=== PATIENT | female | born 1955 | race American Indian/Alaskan Native ===

== ENCOUNTER 2019-10-13 15:11 | Emergency (ER) | payer MEDICARE ==
[2019-10-13] MEDS ORDERED: ALBUTEROL 2.5 MG/3 ML NEBU IH ONE (16:01)
[2019-10-13] MEDS ORDERED: IPRATROPIUM 0.02% NEBU 2.5 ML IH ONE (16:01)
--- NOTE | 2019-10-13 16:41 | Emergency Department Report ---
ED General Adult HPI - General Chief complaint: Dyspnea/Respdistress Stated complaint: RESPIRATORY DISTRESS Time Seen by Provider: 10/13/19 15:42 Source: patient, EMS Mode of arrival: Stretcher Limitations: No Limitations - History of Present Illness Initial comments: The patient presents to the emergency department chief complaint of shortness of breath. Patient has a history of COPD and states that she began to have difficulty breathing today. 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 Patient received Solu-Medrol and IV magnesium in route along with a breathing treatment. Patient states that her breathing is improved but she is still having some mild difficulty breathing. -: Sudden Severity scale (0 -10): 0 Consistency: constant Improves with: none Worsens with: none Associated Symptoms: denies other symptoms Treatments Prior to Arrival: none - Related Data Previous Rx's Medication Instructions Recorded Last Taken Type Albuterol Sulfate [Albuterol 0.63% 0.63 mg IH Q4HR PRN #30 ml 10/13/19 Unknown Rx NEBS] predniSONE [Deltasone] 20 mg PO DAILY #15 tablet 10/13/19 Unknown Rx Allergies Allergy/AdvReac Type Severity Reaction Status Date / Time No Known Allergies Allergy Unverified 10/13/19 15:16 ED Review of Systems ROS: Stated complaint: RESPIRATORY DISTRESS Other details as noted in HPI Comment: All other systems reviewed and negative Constitutional: denies: chills, fever Eyes: denies: eye pain, eye discharge, vision change ENT: denies: ear pain, throat pain Respiratory: shortness of breath. denies: cough, wheezing Cardiovascular: denies: chest pain, palpitations Endocrine: no symptoms reported Gastrointestinal: denies: abdominal pain, nausea, diarrhea Genitourinary: denies: urgency, dysuria, discharge Musculoskeletal: denies: back pain, joint swelling, arthralgia Skin: denies: rash, lesions Neurological: denies: headache, weakness, paresthesias Psychiatric: denies: anxiety, depression Hematological/Lymphatic: denies: easy bleeding, easy bruising ED Past Medical Hx - Past Medical History Hx Hypertension: Yes Hx Liver Disease: (Hep C) Hx Renal Disease: Yes Hx COPD: Yes Additional medical history: Dementia - Social History Smoking Status: Never Smoker Substance Use Type: None - Medications Home Medications: Home Medications Medication Instructions Recorded Confirmed Last Taken Type Albuterol Sulfate [Albuterol 0.63% 0.63 mg IH Q4HR PRN #30 ml 10/13/19 Unknown Rx NEBS] predniSONE [Deltasone] 20 mg PO DAILY #15 tablet 10/13/19 Unknown Rx ED Physical Exam - General Limitations: No Limitations General appearance: alert, in no apparent distress - Head Head exam: Present: atraumatic, normocephalic - Eye Eye exam: Present: normal appearance, PERRL, EOMI - ENT ENT exam: Present: mucous membranes moist - Neck Neck exam: Present: normal inspection - Respiratory Respiratory exam: Present: wheezes (And expiratory wheezing), decreased breath sounds. Absent: respiratory distress - Cardiovascular Cardiovascular Exam: Present: regular rate, normal rhythm. Absent: systolic murmur, diastolic murmur, rubs, gallop - GI/Abdominal GI/Abdominal exam: Present: soft, normal bowel sounds. Absent: distended, tenderness - Extremities Exam Extremities exam: Present: normal inspection - Back Exam Back exam: Present: normal inspection - Neurological Exam Neurological exam: Present: alert, oriented X3, CN II-XII intact. Absent: motor sensory deficit - Psychiatric Psychiatric exam: Present: normal affect, normal mood - Skin Skin exam: Present: warm, dry, intact, normal color. Absent: rash ED Course Vital Signs 10/13/19 10/13/19 15:17 15:52 Temperature 98.5 F Pulse Rate 89 88 Respiratory 23 25 H Rate Blood Pressure 174/104 Blood Pressure 148/93 [Left] O2 Sat by Pulse 100 100 Oximetry ED Medical Decision Making - Lab Data Result diagrams: 10/13/19 16:25 10/13/19 16:25 - Medical Decision Making Patient given a continuous breathing treatment Repeat exam at 6 PM the patient has significant improvement in her respiratory status and is able to complete sentences and states that she wants to go home Critical Care Time: Yes Critical care time in (mins) excluding proc time.: 35 Critical care attestation.: If time is entered above; I have spent that time in minutes in the direct care of this critically ill patient, excluding procedure time. ED Disposition Clinical Impression: COPD with exacerbation Disposition: DC-01 TO HOME OR SELFCARE Is pt being admited?: No Does the pt Need Aspirin: No Condition: Stable Instructions: Chronic Obstructive Pulmonary Disease (ED) Additional Instructions: Return if worse Referrals: PRIMARY CARE, [Primary Care Provider] - 3-5 Days [facility] [Provider Group] - 3-5 Days [facility] [Provider Group] - 3-5 Days DEBO MARIN MD [Staff Physician] - 3-5 Days Time of Disposition: 18:13
--- NOTE | 2019-10-13 16:50 | XRay Report ---
CHEST 1 VIEW INDICATION: Dyspnea. COMPARISON: None. FINDINGS: Support devices: None. Heart: Within normal limits. Lungs/Pleura: No acute air space or interstitial disease. Additional findings: None. IMPRESSION: No acute abnormality. Signer Name: Eddy Ferris MD Signed: 10/13/2019 4:46 PM Workstation Name: [id number]
[2019-10-13 17:17] LABS: Basophils % (Auto) 0.3 % (0.0-1.8); Eosinophils # (Auto) 0.5 K/mm3 (0.0-0.4); Eosinophils % (Auto) 8.8 % (0.0-4.3); Hematocrit 35.7 % (30.3-42.9); Lymphocytes # (Auto) 1.1 K/mm3 (1.2-5.4); Lymphocytes % (Auto) 20.2 % (13.4-35.0); Mean Corpuscular HGB Conc 34 % (30-34); Mean Corpuscular Volume 100 fl (79-97); Monocytes # (Auto) 0.2 K/mm3 (0.0-0.8); Monocytes % (Auto) 3.6 % (0.0-7.3); Platelet Count 184 K/mm3 (140-440); Red Blood Count 3.56 M/mm3 (3.65-5.03); Red Cell Distribution Width 12.6 % (13.2-15.2)
[2019-10-13 17:26] LABS: Albumin 4.1 g/dL (3.9-5); Calcium 10.5 mg/dL (8.4-10.2)
[2019-10-13 18:36] VITALS: BP 133/84
== END 2019-10-13 18:36 | disposition home or self-care (01) ==
LOC: ED 15:11
DX: J44.1 Chronic obstructive pulmonary disease with (acute) exacerbation (principal); I10 Essential (primary) hypertension; F03.90 Unspecified dementia, unspecified severity, without behavioral disturbance, psychotic disturbance, mood disturbance, and anxiety; B19.20 Unspecified viral hepatitis C without hepatic coma; Z87.448 Personal history of other diseases of urinary system; Z79.899 Other long term (current) drug therapy
CPT/HCPCS: 36415; 71045; 80053; 83880; 85025; 93005; 93010; 94640; 99291

== ENCOUNTER 2021-03-21 13:04 | Inpatient (IN) | payer MEDICARE ==
--- NOTE | 2021-03-21 14:25 | Emergency Department Report ---
HPI - General Chief Complaint: Dyspnea/Respdistress Time Seen by Provider: 03/21/21 13:29 - HPI HPI: This is a 66-year-old -[place] female presents to the emergency department via EMS from her personal group home with complaint of a 2-day history of shortness of breath and a mixed dry and productive cough. The patient has a history of COPD and is oxygen dependent at home on 3 L via nasal cannula. When EMS arrived the patient was not on oxygen and had a room air pulse ox of 80%. Patient also has a history of hypertension and asthma. She denies tobacco or illicit drug use. The patient received a nonrebreather, albuterol treatment, and a dose of Solu-Medrol. The patient says that she received 2 vaccination doses for Covid. She denies any chest pain, lower extremity swelling, nausea, vomiting or diaphoresis. ED Past Medical Hx - Past Medical History Previous Medical History?: Yes Hx Hypertension: Yes Hx Liver Disease: (Hep C) Hx Renal Disease: Yes Hx COPD: Yes Additional medical history: Dementia - Social History Smoking Status: Never Smoker Substance Use Type: None - Medications Home Medications: Home Medications Medication Instructions Recorded Confirmed Last Taken Type Albuterol Sulfate [Albuterol 0.63% 0.63 mg IH Q4HR PRN #30 ml 10/13/19 03/23/21 03/20/21 Rx NEBS] predniSONE [Deltasone] 20 mg PO DAILY #15 tablet 10/13/19 03/23/21 03/20/21 Rx Arformoterol Nebu [Brovana Nebu] 15 mcg IH BID 03/22/21 03/23/21 03/20/21 22:00 History Aspirin [Aspirin BABY CHEW TAB] 81 mg PO QDAY 03/22/21 03/23/21 03/20/21 08:00 History Budesonide [Pulmicort] 0.5 mg IH Q6H 03/22/21 03/23/21 03/20/21 15:00 History Cholecalciferol Vit D3 [Vitamin D3 1,000 unit PO TID 03/22/21 03/23/21 03/21/21 08:00 History 1,000 UNIT TAB] Mirabegron [Myrbetriq] 25 mg PO QDAY 03/22/21 03/23/21 03/20/21 08:00 History Mirtazapine [Remeron 45mg TAB] 45 mg PO QHS 03/22/21 03/23/21 03/20/21 22:00 History Spironolactone [Aldactone] 25 mg PO QDAY 03/22/21 03/22/21 03/20/21 08:00 History lisinopriL [Zestril] 5 mg PO QDAY 03/22/21 03/22/21 03/20/21 08:00 History ED Review of Systems ROS: Stated complaint: JARED Other details as noted in HPI Comment: All other systems reviewed and negative Constitutional: denies: chills, fever Eyes: denies: eye pain, vision change ENT: denies: ear pain, throat pain Respiratory: cough, shortness of breath, wheezing Cardiovascular: denies: chest pain, palpitations Gastrointestinal: denies: abdominal pain, vomiting Genitourinary: denies: dysuria, discharge Musculoskeletal: denies: back pain, arthralgia Skin: denies: rash Neurological: denies: headache, weakness Physical Exam - Physical Exam Vital Signs: Vital Signs 03/21/21 13:26 Temperature 99.7 F H Pulse Rate 114 H Respiratory 24 Rate Blood Pressure 158/100 [Right] O2 Sat by Pulse 100 Oximetry Physical Exam: GENERAL: The patient is well-developed well-nourished. HENT: Normocephalic. Atraumatic. Patient has moist mucous membranes. EYES: Extraocular motions are intact. NECK: Supple. Trachea is midline. CHEST/LUNGS: Moderate wheezing throughout the chest. There is tachypnea and some accessory muscle use. There is conversational dyspnea. HEART/CARDIOVASCULAR: Regular. There is no tachycardia. There is no murmur. ABDOMEN: Abdomen is soft, nontender. Patient has normal bowel sounds. There is no abdominal distention. SKIN: Skin is warm and dry. NEURO: The patient is awake, alert, and cooperative. The patient has no focal neurologic deficits. Normal speech. MUSCULOSKELETAL: There is no tenderness or deformity. ED Course Vital Signs 03/21/21 13:26 Temperature 99.7 F H Pulse Rate 114 H Respiratory 24 Rate Blood Pressure 158/100 [Right] O2 Sat by Pulse 100 Oximetry ED Medical Decision Making - Lab Data Result diagrams: 03/22/21 11:01 03/22/21 11:01 Lab Results 03/21/21 03/21/21 03/21/21 Range/Units 14:36 14:36 14:36 WBC 7.5 (4.5-11.0) K/mm3 RBC 3.81 (3.65-5.03) M/mm3 Hgb 12.9 (10.1-14.3) gm/dl Hct 38.0 (30.3-42.9) % MCV 100 H (79-97) fl MCH 34 H (28-32) pg MCHC 34 (30-34) % RDW 12.3 L (13.2-15.2) % Plt Count 166 (140-440) K/mm3 Add Manual Diff Complete Total Counted 100 Seg Neutrophils % Applications Instructor Seg Neuts % (Manual) 93.0 H (40.0-70.0) % Lymphocytes % (Manual) 6.0 L (13.4-35.0) % Monocytes % (Manual) 1.0 (0.0-7.3) % Nucleated RBC % Not Reportable Seg Neutrophils # Man 7.0 (1.8-7.7) K/mm3 Band Neutrophils # 0.0 K/mm3 Lymphocytes # (Manual) 0.5 L (1.2-5.4) K/mm3 Abs React Lymphs (Man) 0.0 K/mm3 Monocytes # (Manual) 0.1 (0.0-0.8) K/mm3 Eosinophils # (Manual) 0.0 (0.0-0.4) K/mm3 Basophils # (Manual) 0.0 (0.0-0.1) K/mm3 Metamyelocytes # 0.0 K/mm3 Myelocytes # 0.0 K/mm3 Promyelocytes # 0.0 K/mm3 Blast Cells # 0.0 K/mm3 WBC Morphology Not Reportable Hypersegmented Neuts Not Reportable Hyposegmented Neuts Not Reportable Hypogranular Neuts Not Reportable Smudge Cells Not Reportable Toxic Granulation Not Reportable Toxic Vacuolation Not Reportable Dohle Bodies Not Reportable Pelger-Huet Anomaly Not Reportable Stephany Rods Not Reportable Platelet Estimate Consistent w auto Clumped Platelets Not Reportable Plt Clumps, EDTA Not Reportable Large Platelets Not Reportable Giant Platelets Not Reportable Platelet Satelliting Not Reportable Plt Morphology Comment Not Reportable RBC Morphology Normal Dimorphic RBCs Not Reportable Polychromasia Not Reportable Hypochromasia Not Reportable Poikilocytosis Not Reportable Anisocytosis Not Reportable Microcytosis Not Reportable Macrocytosis Not Reportable Spherocytes Not Reportable Pappenheimer Bodies Not Reportable Sickle Cells Not Reportable Target Cells Not Reportable Tear Drop Cells Not Reportable Ovalocytes Not Reportable Helmet Cells Not Reportable Cardoza-Nogales Bodies Not Reportable Walton Rings Not Reportable Esther Cells Not Reportable Bite Cells Not Reportable Crenated Cell Not Reportable Elliptocytes Not Reportable Acanthocytes (Spur) Not Reportable Rouleaux Not Reportable Hemoglobin C Crystals Not Reportable Schistocytes Not Reportable Malaria parasites Not Reportable Sean Bodies Not Reportable Hem Pathologist Commnt No D-Dimer 395.59 H (0-234) ng/mlDDU Sodium 143 (137-145) mmol/L Potassium 5.7 H (3.6-5.0) mmol/L Chloride 104.3 (98-107) mmol/L Carbon Dioxide 25 (22-30) mmol/L Anion Gap 19 mmol/L BUN 24 H (7-17) mg/dL Creatinine 1.6 H (0.6-1.2) mg/dL Estimated GFR 39 ml/min BUN/Creatinine Ratio 15 % Glucose 118 H (65-100) mg/dL Calcium 10.2 (8.4-10.2) mg/dL Ferritin (10.0-200.0) ng/mL Total Bilirubin 0.60 (0.1-1.2) mg/dL AST 41 H (5-40) units/L ALT 41 (7-56) units/L Alkaline Phosphatase 93 (35-129) units/L Lactate Dehydrogenase (91-180) units/L Troponin T 0.063 H (0.00-0.029) ng/mL C-Reactive Protein (0.00-1.30) mg/dL NT-Pro-B Natriuret Pep (0-900) pg/mL Total Protein 7.9 (6.3-8.2) g/dL Albumin 4.8 (3.9-5) g/dL Albumin/Globulin Ratio 1.5 % Triglycerides 55 (2-149) mg/dL Cholesterol 230 H (50-199) mg/dL LDL Cholesterol Direct 142 H (50-130) mg/dL HDL Cholesterol 91 H (40-59) mg/dL Cholesterol/HDL Ratio 2.52 % Procalcitonin (<0.15) ng/mL 03/21/21 03/21/21 03/21/21 Range/Units 14:36 14:36 14:36 WBC (4.5-11.0) K/mm3 RBC (3.65-5.03) M/mm3 Hgb (10.1-14.3) gm/dl Hct (30.3-42.9) % MCV (79-97) fl MCH (28-32) pg MCHC (30-34) % RDW (13.2-15.2) % Plt Count (140-440) K/mm3 Add Manual Diff Total Counted Seg Neutrophils % Seg Neuts % (Manual) (40.0-70.0) % Lymphocytes % (Manual) (13.4-35.0) % Monocytes % (Manual) (0.0-7.3) % Nucleated RBC % Seg Neutrophils # Man (1.8-7.7) K/mm3 Band Neutrophils # K/mm3 Lymphocytes # (Manual) (1.2-5.4) K/mm3 Abs React Lymphs (Man) K/mm3 Monocytes # (Manual) (0.0-0.8) K/mm3 Eosinophils # (Manual) (0.0-0.4) K/mm3 Basophils # (Manual) (0.0-0.1) K/mm3 Metamyelocytes # K/mm3 Myelocytes # K/mm3 Promyelocytes # K/mm3 Blast Cells # K/mm3 WBC Morphology Hypersegmented Neuts Hyposegmented Neuts Hypogranular Neuts Smudge Cells Toxic Granulation Toxic Vacuolation Dohle Bodies Pelger-Huet Anomaly Stephany Rods Platelet Estimate Clumped Platelets Plt Clumps, EDTA Large Platelets Giant Platelets Platelet Satelliting Plt Morphology Comment RBC Morphology Dimorphic RBCs Polychromasia Hypochromasia Poikilocytosis Anisocytosis Microcytosis Macrocytosis Spherocytes Pappenheimer Bodies Sickle Cells Target Cells Tear Drop Cells Ovalocytes Helmet Cells Cardoza-Nogales Bodies Walton Rings Howells Cells Bite Cells Crenated Cell Elliptocytes Acanthocytes (Spur) Rouleaux Hemoglobin C Crystals Schistocytes Malaria parasites Sean Bodies Hem Pathologist Commnt D-Dimer (0-234) ng/mlDDU Sodium (137-145) mmol/L Potassium (3.6-5.0) mmol/L Chloride (98-107) mmol/L Carbon Dioxide (22-30) mmol/L Anion Gap mmol/L BUN (7-17) mg/dL Creatinine (0.6-1.2) mg/dL Estimated GFR ml/min BUN/Creatinine Ratio % Glucose (65-100) mg/dL Calcium (8.4-10.2) mg/dL Ferritin 126.0 (10.0-200.0) ng/mL Total Bilirubin (0.1-1.2) mg/dL AST (5-40) units/L ALT (7-56) units/L Alkaline Phosphatase (35-129) units/L Lactate Dehydrogenase 244 H (91-180) units/L Troponin T (0.00-0.029) ng/mL C-Reactive Protein 1.50 H (0.00-1.30) mg/dL NT-Pro-B Natriuret Pep 1177 H (0-900) pg/mL Total Protein (6.3-8.2) g/dL Albumin (3.9-5) g/dL Albumin/Globulin Ratio % Triglycerides (2-149) mg/dL Cholesterol (50-199) mg/dL LDL Cholesterol Direct (50-130) mg/dL HDL Cholesterol (40-59) mg/dL Cholesterol/HDL Ratio % Procalcitonin (<0.15) ng/mL 03/21/21 Range/Units 14:36 WBC (4.5-11.0) K/mm3 RBC (3.65-5.03) M/mm3 Hgb (10.1-14.3) gm/dl Hct (30.3-42.9) % MCV (79-97) fl MCH (28-32) pg MCHC (30-34) % RDW (13.2-15.2) % Plt Count (140-440) K/mm3 Add Manual Diff Total Counted Seg Neutrophils % Seg Neuts % (Manual) (40.0-70.0) % Lymphocytes % (Manual) (13.4-35.0) % Monocytes % (Manual) (0.0-7.3) % Nucleated RBC % Seg Neutrophils # Man (1.8-7.7) K/mm3 Band Neutrophils # K/mm3 Lymphocytes # (Manual) (1.2-5.4) K/mm3 Abs React Lymphs (Man) K/mm3 Monocytes # (Manual) (0.0-0.8) K/mm3 Eosinophils # (Manual) (0.0-0.4) K/mm3 Basophils # (Manual) (0.0-0.1) K/mm3 Metamyelocytes # K/mm3 Myelocytes # K/mm3 Promyelocytes # K/mm3 Blast Cells # K/mm3 WBC Morphology Hypersegmented Neuts Hyposegmented Neuts Hypogranular Neuts Smudge Cells Toxic Granulation Toxic Vacuolation Dohle Bodies Pelger-Huet Anomaly Stephany Rods Platelet Estimate Clumped Platelets Plt Clumps, EDTA Large Platelets Giant Platelets Platelet Satelliting Plt Morphology Comment RBC Morphology Dimorphic RBCs Polychromasia Hypochromasia Poikilocytosis Anisocytosis Microcytosis Macrocytosis Spherocytes Pappenheimer Bodies Sickle Cells Target Cells Tear Drop Cells Ovalocytes Helmet Cells Cardoza-Nogales Bodies Walton Rings Howells Cells Bite Cells Crenated Cell Elliptocytes Acanthocytes (Spur) Rouleaux Hemoglobin C Crystals Schistocytes Malaria parasites Sean Bodies Hem Pathologist Commnt D-Dimer (0-234) ng/mlDDU Sodium (137-145) mmol/L Potassium (3.6-5.0) mmol/L Chloride (98-107) mmol/L Carbon Dioxide (22-30) mmol/L Anion Gap mmol/L BUN (7-17) mg/dL Creatinine (0.6-1.2) mg/dL Estimated GFR ml/min BUN/Creatinine Ratio % Glucose (65-100) mg/dL Calcium (8.4-10.2) mg/dL Ferritin (10.0-200.0) ng/mL Total Bilirubin (0.1-1.2) mg/dL AST (5-40) units/L ALT (7-56) units/L Alkaline Phosphatase (35-129) units/L Lactate Dehydrogenase (91-180) units/L Troponin T (0.00-0.029) ng/mL C-Reactive Protein (0.00-1.30) mg/dL NT-Pro-B Natriuret Pep (0-900) pg/mL Total Protein (6.3-8.2) g/dL Albumin (3.9-5) g/dL Albumin/Globulin Ratio % Triglycerides (2-149) mg/dL Cholesterol (50-199) mg/dL LDL Cholesterol Direct (50-130) mg/dL HDL Cholesterol (40-59) mg/dL Cholesterol/HDL Ratio % Procalcitonin 0.86 (<0.15) ng/mL - EKG Data -: EKG Interpreted by Me EKG shows normal: sinus rhythm, axis, intervals, QRS complexes (LVH, early repolarization), ST-T waves Rate: normal - EKG Data When compared to previous EKG there are: no significant change Interpretation: unchanged when compared t (10/13/19) - Radiology Data Radiology results: image reviewed interpreted by me: Chest x-ray does not show any acute process. There are no pleural effusions, obvious pneumonia and there is no pneumothorax. No widened mediastinum. Hyperinflation of the lungs and flattening of the diaphragms. - Medical Decision Making This patient presents with a 2-day history of shortness of breath. The patient was found to have a room air pulse ox of about 80%. She is usually oxygen dependent on 3 L. Even with the supplemental oxygen the patient has visible shortness of breath with audible wheezing, conversational dyspnea, tachypnea and accessory muscle use. She was given a prolonged breathing treatment, magnesium and already had received steroids. Chest x-ray appears consistent with COPD/emphysema. Given the shortness of breath, hypoxia, and this current pandemic, the patient was made a PUI. She was placed in droplet precautions and patient isolation. She does have some elevation in the inflammatory markers of CRP and LDH. Patient also has acute kidney injury with a GFR of about 39 which is down from 54 from a year ago. She has an elevated troponin level of 0.063. The patient will be admitted to the hospital for further evaluation and treatment of his except for admission by the hospitalist, Dr. Davis. Critical Care Time: Yes Critical care time in (mins) excluding proc time.: 31 Critical care attestation.: If time is entered above; I have spent that time in minutes in the direct care of this critically ill patient, excluding procedure time. Care time spent on this patient during her initial evaluation, multiple reevaluations, ordering and interpretation of labs and imaging, increased supplemental oxygen for hypoxia, breathing treatments, steroids, multiple discussions with the patient. Critical Care Time: 31 minutes ED Disposition Clinical Impression: COPD exacerbation, CHUCK (acute kidney injury), Elevated troponin, Hypertension, Suspected 2019 novel coronavirus infection, Hyperkalemia, Hypoxia Disposition: DC-09 OP ADMIT IP TO THIS HOSP Is pt being admited?: Yes Condition: Serious Time of Disposition: 15:29
[2021-03-21] MEDS ORDERED: ALBUTEROL 2.5 MG/3 ML NEBU IH ONE (14:28)
[2021-03-21] MEDS ORDERED: MAGNESIUM SULFATE 2 GM/50 ML BAG IV ONE (14:28)
[2021-03-21] MEDS ORDERED: IPRATROPIUM 0.02% NEBU 2.5 ML IH ONE (14:28)
[2021-03-21 15:00] LABS: Hemoglobin 12.9 gm/dl (10.1-14.3); Mean Corpuscular HGB Conc 34 % (30-34); Mean Corpuscular Volume 100 fl (79-97); Platelet Count 166 K/mm3 (140-440); Red Blood Count 3.81 M/mm3 (3.65-5.03); Red Cell Distribution Width 12.3 % (13.2-15.2)
[2021-03-21 15:16] LABS: C-Reactive Protein 1.5 mg/dL (0.00-1.30)
[2021-03-21 15:18] LABS: Albumin 4.8 g/dL (3.9-5); Calcium 10.2 mg/dL (8.4-10.2)
--- NOTE | 2021-03-21 15:20 | XRay Report ---
CHEST 1 VIEW 03/21/2021 2:13 PM INDICATION / CLINICAL INFORMATION: SOB. COMPARISON: 10/13/2019 FINDINGS: SUPPORT DEVICES: None. HEART / MEDIASTINUM: Stable. LUNGS / PLEURA: No significant pulmonary or pleural abnormality. No pneumothorax. ADDITIONAL FINDINGS: No significant additional findings. IMPRESSION: 1. No acute findings. Signer Name: Austin Omer DO Signed: 03/21/2021 3:16 PM Workstation Name: [id number]
--- NOTE | 2021-03-21 15:24 | History and Physical Report ---
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 Patient reports "I am short of breath". Patient states that she has experienced shortness of breath, dry cough, fatigue, malaise, body aches, diminished exercise tolerance over the past 2 days with progressively worsening symptoms of the same timeframe. EMS was notified and upon arrival the patient was found to be in distress and subsequently transported to [facility] for further care and evaluation of the aforementioned symptoms. The patient was seen and evaluated in the emergency department. All lab and imaging studies reviewed. The patient was found to have a pulse oximetry of 80% on room air which is consistent with acute hypoxic respiratory failure. Patient also found to have clinical symptoms consistent with acute bronchitis, as well as acute kidney injury, and hyperkalemia. The patient was admitted to medical floor and initiated on coronavirus protocol. Patient denies fever, chills, chest pain, palpitation, skin rash, recent ill contacts, or known exposure to COVID-19. No prior admission for review. No medication listed at time of admission for reconciliation. Advanced care planning conducted in ED. The patient says that she received 2 vaccination doses for Covid. Past History Past Medical History: COPD, hepatitis, hypertension Past Surgical History: No surgical history, Other (Reviewed) Social history: single. denies: smoking, alcohol abuse Family history: hypertension Medications and Allergies Allergies Allergy/AdvReac Type Severity Reaction Status Date / Time No Known Allergies Allergy Unverified 10/13/19 15:16 Home Medications Medication Instructions Recorded Confirmed Last Taken Type Albuterol Sulfate [Albuterol 0.63% 0.63 mg IH Q4HR PRN #30 ml 10/13/19 Unknown Rx NEBS] predniSONE [Deltasone] 20 mg PO DAILY #15 tablet 10/13/19 Unknown Rx Review of Systems Constitutional: fatigue, weakness, malaise, no weight loss, no weight gain, no fever, no chills Ears, nose, mouth and throat: no ear pain, no ear discharge, no decreased hearing, no nose pain, no nasal congestion Breasts: no change in shape, no swelling, no mass Cardiovascular: no chest pain, no orthopnea, no rapid/irregular heart beat, no edema Respiratory: cough, shortness of breath, no congestion Gastrointestinal: no abdominal pain, no nausea, no vomiting, no diarrhea Genitourinary Female: no pelvic pain, no flank pain, no dysuria, no urinary frequency, no urgency Rectal: no pain, no incontinence, no bleeding Musculoskeletal: no neck stiffness, no neck pain, no shooting arm pain, no arm numbness/tingling, no low back pain, no shooting leg pain, no leg numbness/tingling Integumentary: no rash, no redness, no sores, no jaundice, no boils Neurological: no head injury, no parathesias, no numbness, no syncope Psychiatric: no anxiety, no memory loss, no change in sleep habits, no insomnia Endocrine: no cold intolerance, no polydipsia, no excessive sweating, no flushing Hematologic/Lymphatic: no easy bruising Allergic/Immunologic: no urticaria, no wheezing Exam - Constitutional Vitals: Temp Pulse Resp BP Pulse Ox 99.7 F H 114 H 24 158/100 100 03/21/21 13:26 03/21/21 13:26 03/21/21 13:26 03/21/21 13:26 03/21/21 13:26 General appearance: Present: mild distress - EENT Eyes: Present: PERRL ENT: hearing intact, clear oral mucosa - Neck Neck: Present: supple, normal ROM - Respiratory Respiratory effort: normal, labored, accessory muscle use, stridor Respiratory: bilateral: diminished, rhonchi - Cardiovascular Heart Sounds: Present: S1 & S2. Absent: rub, click - Extremities Extremities: pulses symmetrical, No edema Peripheral Pulses: within normal limits - Abdominal General gastrointestinal: Present: soft, non-tender, non-distended, normal bowel sounds Female genitourinary: Present: normal - Integumentary Integumentary: Present: clear, warm, dry - Musculoskeletal Musculoskeletal: gait normal, strength equal bilaterally - Psychiatric Psychiatric: appropriate mood/affect, intact judgment & insight - Neurologic Neurologic: CNII-XII intact, moves all extremities HEART Score - HEART Score Troponin: Troponin T 0.063 ng/mL (0.00-0.029) H 03/21/21 14:36 Results - Labs CBC & Chem 7: 03/21/21 14:36 03/21/21 14:36 Labs: Abnormal lab results 03/21/21 03/21/21 03/21/21 Range/Units 14:36 14:36 14:36 MCV 100 H (79-97) fl MCH 34 H (28-32) pg RDW 12.3 L (13.2-15.2) % D-Dimer 395.59 H (0-234) ng/mlDDU Potassium 5.7 H (3.6-5.0) mmol/L BUN 24 H (7-17) mg/dL Creatinine 1.6 H (0.6-1.2) mg/dL Glucose 118 H (65-100) mg/dL AST 41 H (5-40) units/L Lactate Dehydrogenase (91-180) units/L Troponin T 0.063 H (0.00-0.029) ng/mL C-Reactive Protein (0.00-1.30) mg/dL NT-Pro-B Natriuret Pep (0-900) pg/mL 03/21/21 03/21/21 Range/Units 14:36 14:36 MCV (79-97) fl MCH (28-32) pg RDW (13.2-15.2) % D-Dimer (0-234) ng/mlDDU Potassium (3.6-5.0) mmol/L BUN (7-17) mg/dL Creatinine (0.6-1.2) mg/dL Glucose (65-100) mg/dL AST (5-40) units/L Lactate Dehydrogenase 244 H (91-180) units/L Troponin T (0.00-0.029) ng/mL C-Reactive Protein 1.50 H (0.00-1.30) mg/dL NT-Pro-B Natriuret Pep 1177 H (0-900) pg/mL Assessment and Plan - Patient Problems (1) Acute hypoxemic respiratory failure Current Visit: Yes Status: Acute Plan to address problem: Chest x-ray, supplemental oxygen, pulse oximetry, nebulizer therapy, pulmonary toilet (2) Acute bronchitis Current Visit: Yes Status: Acute Plan to address problem: IV steroid therapy, supportive care, supplemental oxygen, pulse oximetry, (3) CHUCK (acute kidney injury) Current Visit: Yes Status: Acute Plan to address problem: BMP, IV fluid resuscitation therapy, repeat BMP in a.m. to monitor serum creatinine as well as GFR. (4) Hyperkalemia Current Visit: Yes Status: Acute Plan to address problem: Kayexalate, repeat BMP in a.m., no EKG changes. (5) Suspected 2019 novel coronavirus infection Current Visit: Yes Status: Acute Plan to address problem: Coronavirus protocol: IV steroid therapy, IV antibiotic therapy, supplemental oxygen, pulse oximetry, nebulizer therapy, vitamin D therapy, vitamin C therapy, zinc therapy, prophylactic anticoagulation, (6) DVT prophylaxis Current Visit: Yes Status: Acute Plan to address problem: SCD to bilateral lower extremities while in bed, prophylactic anticoagulation (7) Advance care planning Current Visit: Yes Status: Acute Plan to address problem: Disease education conducted, care plan discussed, diagnosis discussed, prognosis discussed, patient is full code, patient knowledges understanding agree with care plan, +30 minutes.
[2021-03-21] MEDS ORDERED: SODIUM POLYSTYRENE 15 GM/60 ML ORAL LIQD PO ONE (15:29)
[2021-03-21 15:55] LABS: Chol/HDL Ratio 2.52 %
[2021-03-21 15:57] LABS: Platelet Estimate Consistent w Auto; RBC Morphology Normal; Total Cells Counted 100
[2021-03-21] MEDS ORDERED: SODIUM CHLORIDE 0.9% 1000 ML 2,000 ML IV ONE (16:00)
[2021-03-21] MEDS ORDERED: ACETAMINOPHEN 325 MG TAB PO PRN (16:00)
[2021-03-21] MEDS ORDERED: ONDANSETRON 4 MG/2 ML INJ IV PRN (16:00)
[2021-03-21] MEDS ORDERED: HYDROmorphone 1 MG/1 ML INJ IV PRN (16:00)
[2021-03-21] MEDS: methylPREDNISolone Sod Succinate 40 MG/1 ML INJ IV SCH ×2 (18:08→22:25)
[2021-03-21] MEDS: oxyCODONE /ACETAMINOPHEN 5-325MG TAB PO PRN (18:09)
[2021-03-21] MEDS: HEPARIN 5,000 UNIT/1 ML VIAL SUB-Q SCH (22:25)
[2021-03-21] MEDS: ZINC SULFATE 220 MG CAP PO SCH (22:25)
[2021-03-22] MEDS: ASCORBIC ACID 500 MG TAB PO SCH ×3 (06:31→21:10)
[2021-03-22] MEDS: methylPREDNISolone Sod Succinate 40 MG/1 ML INJ IV SCH ×3 (07:53→21:06)
[2021-03-22] MEDS: CHOLECALCIFEROL (VIT D3) 1000 UNIT (25 mcg) TAB PO SCH (10:05)
[2021-03-22] MEDS: HEPARIN 5,000 UNIT/1 ML VIAL SUB-Q SCH ×2 (10:05→21:10)
[2021-03-22] MEDS: ZINC SULFATE 220 MG CAP PO SCH ×2 (10:05→23:52)
[2021-03-22 11:21] LABS: Basophils % (Auto) 0.1 % (0.0-1.8); Hematocrit 34.2 % (30.3-42.9); Hemoglobin 11.5 gm/dl (10.1-14.3); Lymphocytes # (Auto) 0.8 K/mm3 (1.2-5.4); Lymphocytes % (Auto) 10.8 % (13.4-35.0); Mean Corpuscular HGB Conc 34 % (30-34); Mean Corpuscular Volume 102 fl (79-97); Monocytes # (Auto) 0.4 K/mm3 (0.0-0.8); Monocytes % (Auto) 5.9 % (0.0-7.3); Platelet Count 149 K/mm3 (140-440); Red Blood Count 3.36 M/mm3 (3.65-5.03); Red Cell Distribution Width 12.2 % (13.2-15.2)
--- NOTE | 2021-03-22 15:17 | Progress Note ---
Assessment and Plan Assessment and Plan - Patient Problems (1) Acute hypoxemic respiratory failure Current Visit: Yes Status: Acute Plan to address problem: Chest x-ray, supplemental oxygen, pulse oximetry, nebulizer therapy, pulmonary toilet (2) Acute bronchitis Current Visit: Yes Status: Acute Plan to address problem: IV steroid therapy, supportive care, supplemental oxygen, pulse oximetry, (3) CHUCK (acute kidney injury) Current Visit: Yes Status: Acute Plan to address problem: BMP, IV fluid resuscitation therapy, repeat BMP in a.m. to monitor serum creatinine as well as GFR. (4) Hyperkalemia Current Visit: Yes Status: Acute Plan to address problem: Kayexalate, repeat BMP in a.m., no EKG changes. (5) Suspected 2019 novel coronavirus infection Current Visit: Yes Status: Acute Plan to address problem: Coronavirus protocol: IV steroid therapy, IV antibiotic therapy, supplemental oxygen, pulse oximetry, nebulizer therapy, vitamin D therapy, vitamin C therapy, zinc therapy, prophylactic anticoagulation, (6) DVT prophylaxis Current Visit: Yes Status: Acute Plan to address problem: SCD to bilateral lower extremities while in bed, prophylactic anticoagulation (7) Advance care planning Current Visit: Yes Status: Acute Plan to address problem: Disease education conducted, care plan discussed, diagnosis discussed, prognosis discussed, patient is full code, patient knowledges understanding agree with care plan, +30 minutes. Subjective Date of service: 03/22/21 Principal diagnosis: Respiratory failure with hypoxia, COPD exacerbation Interval history: 66 YO Female Personal Longterm Resident with HTN, COPD, HCV, Vascular Dementia, Cerebral Atherosclerosis presents to ED for evaluation. Patient reports "I am short of breath". Patient states that she has experienced shortness of breath, dry cough, fatigue, malaise, body aches, diminished exercise tolerance over the past 2 days with progressively worsening symptoms of the same timeframe. EMS was notified and upon arrival the patient was found to be in distress and subsequently transported to [facility] for further care and evaluation of the aforementioned symptoms. The patient was seen and evaluated in the emergency department. All lab and imaging studies reviewed. The patient was found to have a pulse oximetry of 80% on room air which is consistent with acute hypoxic respiratory failure. Patient also found to have clinical symptoms consistent with acute bronchitis, as well as acute kidney injury, and hyperkalemia. The patient was admitted to medical floor and initiated on coronavirus protocol. Patient denies fever, chills, chest pain, palpitation, skin rash, recent ill c ontacts, or known exposure to COVID-19. No prior admission for review. No medication listed at time of admission for reconciliation. Advanced care planning conducted in ED. The patient says that she received 2 vaccination doses for Covid. 03/22/2021 Covid negative Continues to be short of breath Objective - Constitutional Vitals: Vital Signs - 12hr 03/22/21 03/22/21 03/22/21 03:31 03:45 04:01 Temperature Pulse Rate 71 70 70 Respiratory 19 19 18 Rate Blood Pressure 134/77 134/77 113/72 O2 Sat by Pulse 100 100 100 Oximetry 03/22/21 03/22/21 03/22/21 04:15 04:31 04:45 Temperature Pulse Rate 71 71 70 Respiratory 16 17 18 Rate Blood Pressure 113/72 113/72 113/72 O2 Sat by Pulse 100 100 100 Oximetry 03/22/21 03/22/21 03/22/21 05:01 05:15 05:31 Temperature Pulse Rate 72 71 74 Respiratory 18 19 17 Rate Blood Pressure 123/76 113/72 113/72 O2 Sat by Pulse 100 100 100 Oximetry 03/22/21 03/22/21 03/22/21 05:45 06:01 06:15 Temperature Pulse Rate 74 75 72 Respiratory 21 21 20 Rate Blood Pressure 113/72 126/88 126/88 O2 Sat by Pulse 100 100 100 Oximetry 03/22/21 03/22/21 03/22/21 06:31 06:45 07:01 Temperature Pulse Rate 71 72 72 Respiratory 18 18 15 Rate Blood Pressure 126/88 126/88 140/83 O2 Sat by Pulse 100 100 100 Oximetry 03/22/21 03/22/21 03/22/21 07:15 07:31 07:45 Temperature Pulse Rate 74 76 81 Respiratory 18 24 26 H Rate Blood Pressure 140/83 140/83 140/83 O2 Sat by Pulse 97 100 99 Oximetry 03/22/21 03/22/21 03/22/21 07:53 08:01 08:15 Temperature 98.3 F Pulse Rate 87 87 Respiratory 19 20 Rate Blood Pressure 150/86 150/86 O2 Sat by Pulse 96 97 Oximetry 03/22/21 03/22/21 03/22/21 08:31 08:45 09:01 Temperature Pulse Rate 87 100 H 86 Respiratory 23 24 20 Rate Blood Pressure 150/86 150/86 162/103 O2 Sat by Pulse 99 96 98 Oximetry 03/22/21 03/22/21 03/22/21 09:15 09:31 09:45 Temperature Pulse Rate 91 H 80 78 Respiratory 23 21 21 Rate Blood Pressure 162/103 162/103 162/103 O2 Sat by Pulse 98 100 100 Oximetry 03/22/21 03/22/21 03/22/21 10:01 10:15 10:31 Temperature Pulse Rate 89 82 80 Respiratory 24 22 23 Rate Blood Pressure 154/98 154/98 162/103 O2 Sat by Pulse 100 100 100 Oximetry 03/22/21 03/22/21 03/22/21 10:45 11:01 11:15 Temperature Pulse Rate 79 83 90 Respiratory 20 22 20 Rate Blood Pressure 162/103 163/109 163/109 O2 Sat by Pulse 100 100 100 Oximetry 03/22/21 03/22/21 03/22/21 11:31 11:45 12:01 Temperature Pulse Rate 83 80 74 Respiratory 22 21 18 Rate Blood Pressure 163/109 163/109 180/103 O2 Sat by Pulse 100 100 100 Oximetry 03/22/21 03/22/21 03/22/21 12:15 12:31 12:45 Temperature Pulse Rate 92 H 87 82 Respiratory 22 20 20 Rate Blood Pressure 180/103 180/103 180/103 O2 Sat by Pulse 99 100 100 Oximetry 03/22/21 03/22/21 03/22/21 13:01 13:15 13:31 Temperature Pulse Rate 87 81 83 Respiratory 21 17 18 Rate Blood Pressure 179/95 179/95 179/95 O2 Sat by Pulse 100 100 100 Oximetry General appearance: Present: no acute distress, mild distress, well-nourished - EENT Eyes: PERRL, EOM intact ENT: hearing intact, clear oral mucosa Ears: bilateral: normal - Neck Neck: supple, normal ROM - Respiratory Respiratory effort: normal Respiratory: bilateral: rhonchi, wheezing - Breasts Breasts: normal - Cardiovascular Heart rate: 78 Rhythm: regular Heart Sounds: Present: S1 & S2. Absent: gallop, rub Extremities: pulses intact, No edema, normal color, Full ROM - Gastrointestinal General gastrointestinal: Present: soft, non-tender, non-distended, normal bowel sounds - Genitourinary Female genitourinary: normal - Integumentary Integumentary: clear, warm, dry - Musculoskeletal Musculoskeletal: 1, strength equal bilaterally - Neurologic Neurologic: moves all extremities - Psychiatric Psychiatric: memory intact, appropriate mood/affect, intact judgment & insight - Labs CBC & Chem 7: 03/22/21 11:01 03/22/21 11:01 Labs: Abnormal lab results 03/21/21 03/21/21 03/21/21 Range/Units 14:36 14:36 14:36 RBC (3.65-5.03) M/mm3 MCV 100 H (79-97) fl MCH 34 H (28-32) pg RDW 12.3 L (13.2-15.2) % Lymph % (Auto) (13.4-35.0) % Lymph # (Auto) (1.2-5.4) K/mm3 Seg Neutrophils % (40.0-70.0) % Seg Neuts % (Manual) 93.0 H (40.0-70.0) % Lymphocytes % (Manual) 6.0 L (13.4-35.0) % Lymphocytes # (Manual) 0.5 L (1.2-5.4) K/mm3 D-Dimer 395.59 H (0-234) ng/mlDDU Potassium 5.7 H (3.6-5.0) mmol/L Chloride (98-107) mmol/L BUN 24 H (7-17) mg/dL Creatinine 1.6 H (0.6-1.2) mg/dL Glucose 118 H (65-100) mg/dL AST 41 H (5-40) units/L Troponin T 0.063 H (0.00-0.029) ng/mL NT-Pro-B Natriuret Pep (0-900) pg/mL Cholesterol 230 H (50-199) mg/dL LDL Cholesterol Direct 142 H (50-130) mg/dL HDL Cholesterol 91 H (40-59) mg/dL 03/21/21 03/22/21 03/22/21 Range/Units 14:36 11:01 11:01 RBC 3.36 L (3.65-5.03) M/mm3 MCV 102 H (79-97) fl MCH 34 H (28-32) pg RDW 12.2 L (13.2-15.2) % Lymph % (Auto) 10.8 L (13.4-35.0) % Lymph # (Auto) 0.8 L (1.2-5.4) K/mm3 Seg Neutrophils % 83.2 H (40.0-70.0) % Seg Neuts % (Manual) (40.0-70.0) % Lymphocytes % (Manual) (13.4-35.0) % Lymphocytes # (Manual) (1.2-5.4) K/mm3 D-Dimer (0-234) ng/mlDDU Potassium (3.6-5.0) mmol/L Chloride 107.3 H (98-107) mmol/L BUN 20 H (7-17) mg/dL Creatinine (0.6-1.2) mg/dL Glucose 126 H (65-100) mg/dL AST (5-40) units/L Troponin T (0.00-0.029) ng/mL NT-Pro-B Natriuret Pep 1177 H (0-900) pg/mL Cholesterol (50-199) mg/dL LDL Cholesterol Direct (50-130) mg/dL HDL Cholesterol (40-59) mg/dL HEART Score - HEART Score Troponin: Troponin T 0.063 ng/mL (0.00-0.029) H 03/21/21 14:36
[2021-03-22] MEDS: LISINOPRIL 10 MG TAB PO SCH (16:52)
[2021-03-23] MEDS: hydrALAZINE 20 MG/1 ML INJ IV PRN ×2 (00:31→06:23)
[2021-03-23] MEDS: methylPREDNISolone Sod Succinate 40 MG/1 ML INJ IV SCH ×3 (05:13→21:53)
[2021-03-23] MEDS: oxyCODONE /ACETAMINOPHEN 5-325MG TAB PO PRN (05:15)
[2021-03-23] MEDS: ALBUTEROL 2.5 MG/3 ML NEBU IH PRN ×3 (10:09→22:56)
--- NOTE | 2021-03-23 10:12 | Progress Note ---
Assessment and Plan Assessment and plan: (1) Acute hypoxemic respiratory failure Current Visit: Yes Status: Acute Plan to address problem: Chest x-ray, supplemental oxygen, pulse oximetry, nebulizer therapy, pulmonary toilet (2) Acute bronchitis Current Visit: Yes Status: Acute Plan to address problem: IV steroid therapy, supportive care, supplemental oxygen, pulse oximetry, (3) CHUCK (acute kidney injury) Current Visit: Yes Status: Acute Plan to address problem: BMP, IV fluid resuscitation therapy, repeat BMP in a.m. to monitor serum creatinine as well as GFR. (4) Hyperkalemia Current Visit: Yes Status: Acute Plan to address problem: Kayexalate, repeat BMP in a.m., no EKG changes. (5) Suspected 2019 novel coronavirus infection Current Visit: Yes Status: Acute Plan to address problem: Coronavirus protocol: IV steroid therapy, IV antibiotic therapy, supplemental oxygen, pulse oximetry, nebulizer therapy, vitamin D therapy, vitamin C therapy, zinc therapy, prophylactic anticoagulation, (6) DVT prophylaxis Current Visit: Yes Status: Acute Plan to address problem: SCD to bilateral lower extremities while in bed, prophylactic anticoagulation (7) Advance care planning Current Visit: Yes Status: Acute Plan to address problem: Disease education conducted, care plan discussed, diagnosis discussed, prognosis discussed, patient is full code, patient knowledges understanding agree with care plan, +30 minutes. History Interval history: I have seen and examined the patient at the bedside Patient's chart and medications reviewed Patient complains of worsening shortness of breath and some wheeze Vital signs noted Hospitalist Physical - Constitutional Vitals: Temp Pulse Resp BP Pulse Ox 98.4 F 93 H 22 168/104 95 03/23/21 07:43 03/23/21 07:43 03/23/21 07:43 03/23/21 07:43 03/23/21 07:43 General appearance: Present: mild distress, well-nourished - EENT Eyes: Present: PERRL, EOM intact - Neck Neck: Present: supple, normal ROM - Respiratory Respiratory effort: normal Respiratory: bilateral: diminished, wheezing, negative: rales, rhonchi - Cardiovascular Rhythm: regular Heart Sounds: Present: S1 & S2 - Extremities Extremities: no ischemia, No edema - Abdominal General gastrointestinal: soft, non-tender, non-distended, normal bowel sounds - Integumentary Integumentary: Present: clear, warm - Psychiatric Psychiatric: appropriate mood/affect, cooperative - Neurologic Neurologic: CNII-XII intact, moves all extremities HEART Score - HEART Score Troponin: Troponin T 0.063 ng/mL (0.00-0.029) H 03/21/21 14:36 Results - Labs CBC & Chem 7: 03/22/21 11:01 03/22/21 11:01 Labs: Laboratory Last Values WBC 7.1 K/mm3 (4.5-11.0) 03/22/21 11:01 RBC 3.36 M/mm3 (3.65-5.03) L 03/22/21 11:01 Hgb 11.5 gm/dl (10.1-14.3) 03/22/21 11:01 Hct 34.2 % (30.3-42.9) 03/22/21 11:01 MCV 102 fl (79-97) H 03/22/21 11:01 MCH 34 pg (28-32) H 03/22/21 11:01 MCHC 34 % (30-34) 03/22/21 11:01 RDW 12.2 % (13.2-15.2) L 03/22/21 11:01 Plt Count 149 K/mm3 (140-440) 03/22/21 11:01 Lymph % (Auto) 10.8 % (13.4-35.0) L 03/22/21 11:01 [place] % (Auto) 5.9 % (0.0-7.3) 03/22/21 11:01 Eos % (Auto) 0.0 % (0.0-4.3) 03/22/21 11:01 Baso % (Auto) 0.1 % (0.0-1.8) 03/22/21 11:01 Lymph # (Auto) 0.8 K/mm3 (1.2-5.4) L 03/22/21 11:01 [place] # (Auto) 0.4 K/mm3 (0.0-0.8) 03/22/21 11:01 Eos # (Auto) 0.0 K/mm3 (0.0-0.4) 03/22/21 11:01 Baso # (Auto) 0.0 K/mm3 (0.0-0.1) 03/22/21 11:01 Add Manual Diff Complete 03/21/21 14:36 Total Counted 100 03/21/21 14:36 Seg Neutrophils % 83.2 % (40.0-70.0) H 03/22/21 11:01 Seg Neuts % (Manual) 93.0 % (40.0-70.0) H 03/21/21 14:36 Lymphocytes % (Manual) 6.0 % (13.4-35.0) L 03/21/21 14:36 Monocytes % (Manual) 1.0 % (0.0-7.3) 03/21/21 14:36 Nucleated RBC % Not Reportable 03/21/21 14:36 Seg Neutrophils # 5.9 K/mm3 (1.8-7.7) 03/22/21 11:01 Seg Neutrophils # Man 7.0 K/mm3 (1.8-7.7) 03/21/21 14:36 Band Neutrophils # 0.0 K/mm3 03/21/21 14:36 Lymphocytes # (Manual) 0.5 K/mm3 (1.2-5.4) L 03/21/21 14:36 Abs React Lymphs (Man) 0.0 K/mm3 03/21/21 14:36 Monocytes # (Manual) 0.1 K/mm3 (0.0-0.8) 03/21/21 14:36 Eosinophils # (Manual) 0.0 K/mm3 (0.0-0.4) 03/21/21 14:36 Basophils # (Manual) 0.0 K/mm3 (0.0-0.1) 03/21/21 14:36 Metamyelocytes # 0.0 K/mm3 03/21/21 14:36 Myelocytes # 0.0 K/mm3 03/21/21 14:36 Promyelocytes # 0.0 K/mm3 03/21/21 14:36 Blast Cells # 0.0 K/mm3 03/21/21 14:36 WBC Morphology Not Reportable 03/21/21 14:36 Hypersegmented Neuts Not Reportable 03/21/21 14:36 Hyposegmented Neuts Not Reportable 03/21/21 14:36 Hypogranular Neuts Not Reportable 03/21/21 14:36 Smudge Cells Not Reportable 03/21/21 14:36 Toxic Granulation Not Reportable 03/21/21 14:36 Toxic Vacuolation Not Reportable 03/21/21 14:36 Dohle Bodies Not Reportable 03/21/21 14:36 Pelger-Huet Anomaly Not Reportable 03/21/21 14:36 Stephany Rods Not Reportable 03/21/21 14:36 Platelet Estimate Consistent w auto 03/21/21 14:36 Clumped Platelets Not Reportable 03/21/21 14:36 Plt Clumps, EDTA Not Reportable 03/21/21 14:36 Large Platelets Not Reportable 03/21/21 14:36 Giant Platelets Not Reportable 03/21/21 14:36 Platelet Satelliting Not Reportable 03/21/21 14:36 Plt Morphology Comment Not Reportable 03/21/21 14:36 RBC Morphology Normal 03/21/21 14:36 Dimorphic RBCs Not Reportable 03/21/21 14:36 Polychromasia Not Reportable 03/21/21 14:36 Hypochromasia Not Reportable 03/21/21 14:36 Poikilocytosis Not Reportable 03/21/21 14:36 Anisocytosis Not Reportable 03/21/21 14:36 Microcytosis Not Reportable 03/21/21 14:36 Macrocytosis Not Reportable 03/21/21 14:36 Spherocytes Not Reportable 03/21/21 14:36 Pappenheimer Bodies Not Reportable 03/21/21 14:36 Sickle Cells Not Reportable 03/21/21 14:36 Target Cells Not Reportable 03/21/21 14:36 Tear Drop Cells Not Reportable 03/21/21 14:36 Ovalocytes Not Reportable 03/21/21 14:36 Helmet Cells Not Reportable 03/21/21 14:36 Cardoza-[place] Bodies Not Reportable 03/21/21 14:36 [place] Rings Not Reportable 03/21/21 14:36 [place] Cells Not Reportable 03/21/21 14:36 Bite Cells Not Reportable 03/21/21 14:36 Crenated Cell Not Reportable 03/21/21 14:36 Elliptocytes Not Reportable 03/21/21 14:36 Acanthocytes (Spur) Not Reportable 03/21/21 14:36 Rouleaux Not Reportable 03/21/21 14:36 Hemoglobin C Crystals Not Reportable 03/21/21 14:36 Schistocytes Not Reportable 03/21/21 14:36 Malaria parasites Not Reportable 03/21/21 14:36 Sean Bodies Not Reportable 03/21/21 14:36 Hem Pathologist Commnt No 03/21/21 14:36 D-Dimer 395.59 ng/mlDDU (0-234) H 03/21/21 14:36 Sodium 143 mmol/L (137-145) 03/22/21 11:01 Potassium 4.9 mmol/L (3.6-5.0) 03/22/21 11:01 Chloride 107.3 mmol/L (98-107) H 03/22/21 11:01 Carbon Dioxide 27 mmol/L (22-30) 03/22/21 11:01 Anion Gap 14 mmol/L 03/22/21 11:01 BUN 20 mg/dL (7-17) H 03/22/21 11:01 Creatinine 1.2 mg/dL (0.6-1.2) 03/22/21 11:01 Estimated GFR 54 ml/min 03/22/21 11:01 BUN/Creatinine Ratio 17 % 03/22/21 11:01 Glucose 126 mg/dL (65-100) H 03/22/21 11:01 Calcium 10.0 mg/dL (8.4-10.2) 03/22/21 11:01 Ferritin 126.0 ng/mL (10.0-200.0) 03/21/21 14:36 Total Bilirubin 0.60 mg/dL (0.1-1.2) 03/21/21 14:36 AST 41 units/L (5-40) H 03/21/21 14:36 ALT 41 units/L (7-56) 03/21/21 14:36 Alkaline Phosphatase 93 units/L (35-129) 03/21/21 14:36 Lactate Dehydrogenase 244 units/L (91-180) H 03/21/21 14:36 Troponin T 0.063 ng/mL (0.00-0.029) H 03/21/21 14:36 C-Reactive Protein 1.50 mg/dL (0.00-1.30) H 03/21/21 14:36 NT-Pro-B Natriuret Pep 1177 pg/mL (0-900) H 03/21/21 14:36 Total Protein 7.9 g/dL (6.3-8.2) 03/21/21 14:36 Albumin 4.8 g/dL (3.9-5) 03/21/21 14:36 Albumin/Globulin Ratio 1.5 % 03/21/21 14:36 Triglycerides 55 mg/dL (2-149) 03/21/21 14:36 Cholesterol 230 mg/dL (50-199) H 03/21/21 14:36 LDL Cholesterol Direct 142 mg/dL (50-130) H 03/21/21 14:36 HDL Cholesterol 91 mg/dL (40-59) H 03/21/21 14:36 Cholesterol/HDL Ratio 2.52 % 03/21/21 14:36 Procalcitonin 0.86 ng/mL (<0.15) 03/21/21 14:36 Coronavirus (PCR) Negative (Negative) 03/21/21 Unknown Scott/IV: Voiding Method External Female Catheter Active Medications - Current Medications Current Medications: Generic Name Dose Route Start Last Admin Trade Name Freq PRN Reason Stop Dose Admin Acetaminophen 650 mg 03/21/21 16:00 Acetaminophen 325 Mg Tab PO Q4H PRN Pain MILD(1-3)/Fever >100.5/MADRID Albuterol 2.5 mg 03/21/21 16:00 Albuterol 2.5 Mg/3 Ml Nebu IH Q4HRT PRN Shortness Of Breath Ascorbic Acid 500 mg 03/21/21 22:00 03/22/21 21:10 Ascorbic Acid 500 Mg Tab PO 500 mg BID RICHIE Administration Cholecalciferol 1,000 unit 03/22/21 10:00 03/22/21 10:05 Cholecalciferol (Vit D3) 1000 Unit (25 Mcg) Tab PO 1,000 unit QDAY RICHIE Administration Heparin Sodium (Porcine) 5,000 unit 03/21/21 22:00 03/22/21 21:10 Heparin 5,000 Unit/1 Ml Vial SUB-Q 5,000 unit Q12HR RICHIE Administration Hydralazine HCl 10 mg 03/22/21 23:55 03/23/21 06:23 Hydralazine 20 Mg/1 Ml Inj IV 10 mg Q6H PRN Administration Blood Pressure Hydromorphone HCl 0.5 mg 03/21/21 16:00 Hydromorphone 1 Mg/1 Ml Inj IV Q12H PRN Pain , Severe (7-10) Lisinopril 10 mg 03/22/21 17:00 03/22/21 16:52 Lisinopril 10 Mg Tab PO 10 mg QDAY RICHIE Administration Methylprednisolone Sodium Succinate 40 mg 03/21/21 17:00 03/23/21 05:13 Methylprednisolone Sod Succinate 40 Mg/1 Ml Inj IV 40 mg Q8HR RICHIE Administration Ondansetron HCl 4 mg 03/21/21 16:00 03/21/21 18:09 Ondansetron 4 Mg/2 Ml Inj IV 4 mg Q8H PRN Administration Nausea And Vomiting Oxycodone/Acetaminophen 1 tab 03/21/21 16:00 03/23/21 05:15 Oxycodone /Acetaminophen 5-325mg Tab PO 1 tab Q12H PRN Administration Pain, Moderate (4-6) Sodium Chloride 10 ml 03/21/21 22:00 03/22/21 21:09 Sodium Chloride 0.9% 10 Ml Flush Syringe IV 10 ml BID RICHIE Administration Sodium Chloride 10 ml 03/21/21 16:00 Sodium Chloride 0.9% 10 Ml Flush Syringe IV PRN PRN LINE FLUSH Zinc Sulfate 220 mg 03/21/21 22:00 03/22/21 23:52 Zinc Sulfate 220 Mg Cap PO Not Given BID RICHIE
[2021-03-23] MEDS: HEPARIN 5,000 UNIT/1 ML VIAL SUB-Q SCH ×2 (12:16→21:53)
[2021-03-23] MEDS: LISINOPRIL 10 MG TAB PO SCH (12:17)
[2021-03-23] MEDS: CHOLECALCIFEROL (VIT D3) 1000 UNIT (25 mcg) TAB PO SCH (12:17)
[2021-03-23] MEDS: ASCORBIC ACID 500 MG TAB PO SCH ×2 (12:17→21:53)
--- NOTE | 2021-03-23 13:00 | Electrocardiograph Report ---
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
[2021-03-23] MEDS: ZINC SULFATE 220 MG CAP PO SCH ×2 (18:52→21:53)
[2021-03-24] MEDS: methylPREDNISolone Sod Succinate 40 MG/1 ML INJ IV SCH ×3 (05:52→21:36)
[2021-03-24] MEDS: hydrALAZINE 20 MG/1 ML INJ IV PRN (07:57)
[2021-03-24] MEDS: ALBUTEROL 2.5 MG/3 ML NEBU IH PRN ×2 (09:58→21:08)
[2021-03-24] MEDS: LISINOPRIL 10 MG TAB PO SCH (10:14)
[2021-03-24] MEDS: HEPARIN 5,000 UNIT/1 ML VIAL SUB-Q SCH ×2 (10:15→21:36)
[2021-03-24] MEDS: ZINC SULFATE 220 MG CAP PO SCH ×2 (10:15→21:36)
[2021-03-24] MEDS: CHOLECALCIFEROL (VIT D3) 1000 UNIT (25 mcg) TAB PO SCH (10:15)
[2021-03-24] MEDS: ASCORBIC ACID 500 MG TAB PO SCH ×2 (10:15→21:36)
--- NOTE | 2021-03-24 11:29 | Progress Note ---
Assessment and Plan Assessment and plan: -- Acute hypoxemic respiratory failure Current Visit: Yes Status: Acute Plan to address problem: Chest x-ray, supplemental oxygen, pulse oximetry, nebulizer therapy, pulmonary toilet -- Acute bronchitis Current Visit: Yes Status: Acute Plan to address problem: IV steroid therapy, supportive care, supplemental oxygen, pulse oximetry, --Acute exacerbation of COPD ; Current Visit: Yes Status: Acute bronchodilators, tapering dose of IV steroids, IV antibiotics, inhalation steroids Supportive care -- CHUCK (acute kidney injury) Current Visit: Yes Status: Acute Plan to address problem: BMP, IV fluid resuscitation therapy, repeat BMP in a.m. to monitor serum creati nine as well as GFR. -- Hyperkalemia Current Visit: Yes Status: Acute Plan to address problem: Kayexalate, repeat BMP in a.m., no EKG changes. -- Suspected 2019 novel coronavirus infection Current Visit: Yes Status: Acute Plan to address problem: Coronavirus protocol: IV steroid therapy, IV antibiotic therapy, supplemental oxygen, pulse oximetry, nebulizer therapy, vitamin D therapy, vitamin C therapy, zinc therapy, prophylactic anticoagulation, -- DVT prophylaxis Current Visit: Yes Status: Acute Plan to address problem: SCD to bilateral lower extremities while in bed, prophylactic anticoagulation --Advance care planning Current Visit: Yes Status: Acute Plan to address problem: Disease education conducted, care plan discussed, diagnosis discussed, prognosis discussed, patient is full code, patient knowledges understanding agree with care plan, +30 minutes. Closely monitor patient and adjust management as needed Plan of care reviewed with the patient and her nurse History Interval history: I have seen and examined the patient at the bedside Patient's chart and medications reviewed Patient continues to have chest congestion and wheeze Denies any chest pain or palpitations Vital signs reviewed Hospitalist Physical - Constitutional Vitals: Temp Pulse Resp BP Pulse Ox 98.1 F 75 20 143/89 94 03/24/21 07:54 03/24/21 11:05 03/24/21 10:00 03/24/21 10:19 03/24/21 10:00 General appearance: Present: mild distress, well-nourished - EENT Eyes: Present: PERRL, EOM intact - Neck Neck: Present: supple, normal ROM - Respiratory Respiratory effort: normal, labored Respiratory: bilateral: diminished, rales, wheezing, negative: rhonchi - Cardiovascular Rhythm: regular Heart Sounds: Present: S1 & S2 - Extremities Extremities: no ischemia, No edema - Abdominal General gastrointestinal: soft, non-tender, non-distended, normal bowel sounds - Integumentary Integumentary: Present: clear, warm - Psychiatric Psychiatric: appropriate mood/affect, cooperative - Neurologic Neurologic: moves all extremities HEART Score - HEART Score Troponin: Troponin T 0.063 ng/mL (0.00-0.029) H 03/21/21 14:36 Results - Labs CBC & Chem 7: 03/22/21 11:01 03/22/21 11:01 Labs: Laboratory Last Values WBC 7.1 K/mm3 (4.5-11.0) 03/22/21 11:01 RBC 3.36 M/mm3 (3.65-5.03) L 03/22/21 11:01 Hgb 11.5 gm/dl (10.1-14.3) 03/22/21 11:01 Hct 34.2 % (30.3-42.9) 03/22/21 11:01 MCV 102 fl (79-97) H 03/22/21 11:01 MCH 34 pg (28-32) H 03/22/21 11:01 MCHC 34 % (30-34) 03/22/21 11:01 RDW 12.2 % (13.2-15.2) L 03/22/21 11:01 Plt Count 149 K/mm3 (140-440) 03/22/21 11:01 Lymph % (Auto) 10.8 % (13.4-35.0) L 03/22/21 11:01 [place] % (Auto) 5.9 % (0.0-7.3) 03/22/21 11:01 Eos % (Auto) 0.0 % (0.0-4.3) 03/22/21 11:01 Baso % (Auto) 0.1 % (0.0-1.8) 03/22/21 11:01 Lymph # (Auto) 0.8 K/mm3 (1.2-5.4) L 03/22/21 11:01 [place] # (Auto) 0.4 K/mm3 (0.0-0.8) 03/22/21 11:01 Eos # (Auto) 0.0 K/mm3 (0.0-0.4) 03/22/21 11:01 Baso # (Auto) 0.0 K/mm3 (0.0-0.1) 03/22/21 11:01 Add Manual Diff Complete 03/21/21 14:36 Total Counted 100 03/21/21 14:36 Seg Neutrophils % 83.2 % (40.0-70.0) H 03/22/21 11:01 Seg Neuts % (Manual) 93.0 % (40.0-70.0) H 03/21/21 14:36 Lymphocytes % (Manual) 6.0 % (13.4-35.0) L 03/21/21 14:36 Monocytes % (Manual) 1.0 % (0.0-7.3) 03/21/21 14:36 Nucleated RBC % Not Reportable 03/21/21 14:36 Seg Neutrophils # 5.9 K/mm3 (1.8-7.7) 03/22/21 11:01 Seg Neutrophils # Man 7.0 K/mm3 (1.8-7.7) 03/21/21 14:36 Band Neutrophils # 0.0 K/mm3 03/21/21 14:36 Lymphocytes # (Manual) 0.5 K/mm3 (1.2-5.4) L 03/21/21 14:36 Abs React Lymphs (Man) 0.0 K/mm3 03/21/21 14:36 Monocytes # (Manual) 0.1 K/mm3 (0.0-0.8) 03/21/21 14:36 Eosinophils # (Manual) 0.0 K/mm3 (0.0-0.4) 03/21/21 14:36 Basophils # (Manual) 0.0 K/mm3 (0.0-0.1) 03/21/21 14:36 Metamyelocytes # 0.0 K/mm3 03/21/21 14:36 Myelocytes # 0.0 K/mm3 03/21/21 14:36 Promyelocytes # 0.0 K/mm3 03/21/21 14:36 Blast Cells # 0.0 K/mm3 03/21/21 14:36 WBC Morphology Not Reportable 03/21/21 14:36 Hypersegmented Neuts Not Reportable 03/21/21 14:36 Hyposegmented Neuts Not Reportable 03/21/21 14:36 Hypogranular Neuts Not Reportable 03/21/21 14:36 Smudge Cells Not Reportable 03/21/21 14:36 Toxic Granulation Not Reportable 03/21/21 14:36 Toxic Vacuolation Not Reportable 03/21/21 14:36 Dohle Bodies Not Reportable 03/21/21 14:36 Pelger-Huet Anomaly Not Reportable 03/21/21 14:36 Stephany Rods Not Reportable 03/21/21 14:36 Platelet Estimate Consistent w auto 03/21/21 14:36 Clumped Platelets Not Reportable 03/21/21 14:36 Plt Clumps, EDTA Not Reportable 03/21/21 14:36 Large Platelets Not Reportable 03/21/21 14:36 Giant Platelets Not Reportable 03/21/21 14:36 Platelet Satelliting Not Reportable 03/21/21 14:36 Plt Morphology Comment Not Reportable 03/21/21 14:36 RBC Morphology Normal 03/21/21 14:36 Dimorphic RBCs Not Reportable 03/21/21 14:36 Polychromasia Not Reportable 03/21/21 14:36 Hypochromasia Not Reportable 03/21/21 14:36 Poikilocytosis Not Reportable 03/21/21 14:36 Anisocytosis Not Reportable 03/21/21 14:36 Microcytosis Not Reportable 03/21/21 14:36 Macrocytosis Not Reportable 03/21/21 14:36 Spherocytes Not Reportable 03/21/21 14:36 Pappenheimer Bodies Not Reportable 03/21/21 14:36 Sickle Cells Not Reportable 03/21/21 14:36 Target Cells Not Reportable 03/21/21 14:36 Tear Drop Cells Not Reportable 03/21/21 14:36 Ovalocytes Not Reportable 03/21/21 14:36 Helmet Cells Not Reportable 03/21/21 14:36 Cardoza-[place] Bodies Not Reportable 03/21/21 14:36 [place] Rings Not Reportable 03/21/21 14:36 [place] Cells Not Reportable 03/21/21 14:36 Bite Cells Not Reportable 03/21/21 14:36 Crenated Cell Not Reportable 03/21/21 14:36 Elliptocytes Not Reportable 03/21/21 14:36 Acanthocytes (Spur) Not Reportable 03/21/21 14:36 Rouleaux Not Reportable 03/21/21 14:36 Hemoglobin C Crystals Not Reportable 03/21/21 14:36 Schistocytes Not Reportable 03/21/21 14:36 Malaria parasites Not Reportable 03/21/21 14:36 Sean Bodies Not Reportable 03/21/21 14:36 Hem Pathologist Commnt No 03/21/21 14:36 D-Dimer 395.59 ng/mlDDU (0-234) H 03/21/21 14:36 Sodium 143 mmol/L (137-145) 03/22/21 11:01 Potassium 4.9 mmol/L (3.6-5.0) 03/22/21 11:01 Chloride 107.3 mmol/L (98-107) H 03/22/21 11:01 Carbon Dioxide 27 mmol/L (22-30) 03/22/21 11:01 Anion Gap 14 mmol/L 03/22/21 11:01 BUN 20 mg/dL (7-17) H 03/22/21 11:01 Creatinine 1.2 mg/dL (0.6-1.2) 03/22/21 11:01 Estimated GFR 54 ml/min 03/22/21 11:01 BUN/Creatinine Ratio 17 % 03/22/21 11:01 Glucose 126 mg/dL (65-100) H 03/22/21 11:01 Calcium 10.0 mg/dL (8.4-10.2) 03/22/21 11:01 Ferritin 126.0 ng/mL (10.0-200.0) 03/21/21 14:36 Total Bilirubin 0.60 mg/dL (0.1-1.2) 03/21/21 14:36 AST 41 units/L (5-40) H 03/21/21 14:36 ALT 41 units/L (7-56) 03/21/21 14:36 Alkaline Phosphatase 93 units/L (35-129) 03/21/21 14:36 Lactate Dehydrogenase 244 units/L (91-180) H 03/21/21 14:36 Troponin T 0.063 ng/mL (0.00-0.029) H 03/21/21 14:36 C-Reactive Protein 1.50 mg/dL (0.00-1.30) H 03/21/21 14:36 NT-Pro-B Natriuret Pep 1177 pg/mL (0-900) H 03/21/21 14:36 Total Protein 7.9 g/dL (6.3-8.2) 03/21/21 14:36 Albumin 4.8 g/dL (3.9-5) 03/21/21 14:36 Albumin/Globulin Ratio 1.5 % 03/21/21 14:36 Triglycerides 55 mg/dL (2-149) 03/21/21 14:36 Cholesterol 230 mg/dL (50-199) H 03/21/21 14:36 LDL Cholesterol Direct 142 mg/dL (50-130) H 03/21/21 14:36 HDL Cholesterol 91 mg/dL (40-59) H 03/21/21 14:36 Cholesterol/HDL Ratio 2.52 % 03/21/21 14:36 Procalcitonin 0.86 ng/mL (<0.15) 03/21/21 14:36 Nasal Screen MRSA (PCR) Negative (Negative) 03/23/21 Unknown Coronavirus (PCR) Negative (Negative) 03/21/21 Unknown Scott/IV: Voiding Method Toilet Active Medications - Current Medications Current Medications: Generic Name Dose Route Start Last Admin Trade Name Freq PRN Reason Stop Dose Admin Acetaminophen 650 mg 03/21/21 16:00 Acetaminophen 325 Mg Tab PO Q4H PRN Pain MILD(1-3)/Fever >100.5/MADRID Albuterol 2.5 mg 03/21/21 16:00 03/24/21 09:58 Albuterol 2.5 Mg/3 Ml Nebu IH 2.5 mg Q4HRT PRN Administration Shortness Of Breath Ascorbic Acid 500 mg 03/21/21 22:00 03/24/21 10:15 Ascorbic Acid 500 Mg Tab PO 500 mg BID RICHIE Administration Cholecalciferol 1,000 unit 03/22/21 10:00 03/24/21 10:15 Cholecalciferol (Vit D3) 1000 Unit (25 Mcg) Tab PO 1,000 unit QDAY RICHIE Administration Heparin Sodium (Porcine) 5,000 unit 03/21/21 22:00 03/24/21 10:15 Heparin 5,000 Unit/1 Ml Vial SUB-Q 5,000 unit Q12HR RICHIE Administration Hydralazine HCl 10 mg 03/22/21 23:55 03/24/21 07:57 Hydralazine 20 Mg/1 Ml Inj IV 10 mg Q6H PRN Administration Blood Pressure Hydromorphone HCl 0.5 mg 03/21/21 16:00 Hydromorphone 1 Mg/1 Ml Inj IV Q12H PRN Pain , Severe (7-10) Lisinopril 10 mg 03/22/21 17:00 03/24/21 10:14 Lisinopril 10 Mg Tab PO 10 mg QDAY RICHIE Administration Methylprednisolone Sodium Succinate 40 mg 03/21/21 17:00 03/24/21 05:52 Methylprednisolone Sod Succinate 40 Mg/1 Ml Inj IV 40 mg Q8HR RICHIE Administration Ondansetron HCl 4 mg 03/21/21 16:00 03/21/21 18:09 Ondansetron 4 Mg/2 Ml Inj IV 4 mg Q8H PRN Administration Nausea And Vomiting Oxycodone/Acetaminophen 1 tab 03/21/21 16:00 03/23/21 05:15 Oxycodone /Acetaminophen 5-325mg Tab PO 1 tab Q12H PRN Administration Pain, Moderate (4-6) Sodium Chloride 10 ml 03/21/21 22:00 03/24/21 10:15 Sodium Chloride 0.9% 10 Ml Flush Syringe IV 10 ml BID RICHIE Administration Sodium Chloride 10 ml 03/21/21 16:00 Sodium Chloride 0.9% 10 Ml Flush Syringe IV PRN PRN LINE FLUSH Zinc Sulfate 220 mg 03/21/21 22:00 03/24/21 10:15 Zinc Sulfate 220 Mg Cap PO 220 mg BID RICHIE Administration
[2021-03-24] MEDS ORDERED: FUROSEMIDE 40 MG/4 ML INJ IV ONE (12:00)
[2021-03-24] MEDS: CETIRIZINE 10 MG TAB PO SCH (14:14)
[2021-03-25] MEDS: methylPREDNISolone Sod Succinate 40 MG/1 ML INJ IV SCH ×3 (05:22→21:28)
[2021-03-25] MEDS: ALBUTEROL 2.5 MG/3 ML NEBU IH PRN (09:08)
[2021-03-25] MEDS: CHOLECALCIFEROL (VIT D3) 1000 UNIT (25 mcg) TAB PO SCH (10:31)
[2021-03-25] MEDS: ZINC SULFATE 220 MG CAP PO SCH ×2 (10:31→21:27)
[2021-03-25] MEDS: LISINOPRIL 10 MG TAB PO SCH (10:31)
[2021-03-25] MEDS: CETIRIZINE 10 MG TAB PO SCH (10:31)
[2021-03-25] MEDS: FUROSEMIDE 40 MG/4 ML INJ IV SCH (10:31)
[2021-03-25] MEDS: ASCORBIC ACID 500 MG TAB PO SCH ×2 (10:31→21:28)
[2021-03-25] MEDS: HEPARIN 5,000 UNIT/1 ML VIAL SUB-Q SCH ×2 (10:33→21:28)
--- NOTE | 2021-03-25 12:35 | Progress Note ---
Assessment and Plan Assessment and plan: -- Acute hypoxemic respiratory failure Current Visit: Yes Status: Acute Oxygen titrate O2 sats to more than 90% Nebulizers and supportive care On 2 L of nasal cannula oxygen -- Acute bronchitis Current Visit: Yes Status: Acute Plan to address problem: IV steroid therapy, supportive care, supplemental oxygen, pulse oximetry, --Acute exacerbation of COPD ; Current Visit: Yes Status: Acute bronchodilators, tapering dose of IV steroids, IV antibiotics, inhalation steroids Supportive care -- CHUCK (acute kidney injury) present on admission Current Visit: Yes Status: Acute / resolved Vasomotor nephropathy ,Gentle hydration monitor renal function, avoid nephrotoxin -- Hyperkalemia Current Visit: Yes Status: Acute Plan to address problem: Kayexalate, repeat BMP in a.m., no EKG changes. -- Suspected 2019 novel coronavirus infection Current Visit: Yes Status: Acute Plan to address problem: Coronavirus protocol: IV steroid therapy, IV antibiotic therapy, supplemental oxygen, pulse oximetry, nebulizer therapy, vitamin D therapy, vitamin C therapy, zinc therapy, prophylactic anticoagulation, -- DVT prophylaxis Current Visit: Yes Status: Acute Plan to address problem: SCD to bilateral lower extremities while in bed, prophylactic anticoagulation --Advance care planning Current Visit: Yes Status: Acute Plan to address problem: Disease education conducted, care plan discussed, diagnosis discussed, prognosis discussed, patient is full code, patient knowledges understanding agree with care plan, +30 minutes. Closely monitor patient and adjust management as needed Plan of care reviewed with the patient and her nurse History Interval history: I have seen and examined the patient at the bedside Patient's chart and medications reviewed Patient was admitted with worsening shortness of breath Feels slightly better Vital signs noted Hospitalist Physical - Constitutional Vitals: Temp Pulse Resp BP Pulse Ox 98.1 F 117 H 20 126/81 99 03/25/21 08:21 03/25/21 09:09 03/25/21 09:09 03/25/21 08:21 03/25/21 09:11 General appearance: Present: no acute distress, well-nourished - EENT Eyes: Present: PERRL, EOM intact - Neck Neck: Present: supple, normal ROM - Respiratory Respiratory effort: normal Respiratory: bilateral: diminished, rales, wheezing, negative: rhonchi - Cardiovascular Rhythm: regular Heart Sounds: Present: S1 & S2 - Extremities Extremities: no ischemia, No edema - Abdominal General gastrointestinal: soft, non-tender, non-distended, normal bowel sounds - Integumentary Integumentary: Present: clear, warm - Psychiatric Psychiatric: appropriate mood/affect, cooperative - Neurologic Neurologic: CNII-XII intact, moves all extremities HEART Score - HEART Score Troponin: Troponin T 0.063 ng/mL (0.00-0.029) H 03/21/21 14:36 Results - Labs CBC & Chem 7: 03/22/21 11:01 03/22/21 11:01 Labs: Laboratory Last Values WBC 7.1 K/mm3 (4.5-11.0) 03/22/21 11:01 RBC 3.36 M/mm3 (3.65-5.03) L 03/22/21 11:01 Hgb 11.5 gm/dl (10.1-14.3) 03/22/21 11:01 Hct 34.2 % (30.3-42.9) 03/22/21 11:01 MCV 102 fl (79-97) H 03/22/21 11:01 MCH 34 pg (28-32) H 03/22/21 11:01 MCHC 34 % (30-34) 03/22/21 11:01 RDW 12.2 % (13.2-15.2) L 03/22/21 11:01 Plt Count 149 K/mm3 (140-440) 03/22/21 11:01 Lymph % (Auto) 10.8 % (13.4-35.0) L 03/22/21 11:01 [place] % (Auto) 5.9 % (0.0-7.3) 03/22/21 11:01 Eos % (Auto) 0.0 % (0.0-4.3) 03/22/21 11:01 Baso % (Auto) 0.1 % (0.0-1.8) 03/22/21 11:01 Lymph # (Auto) 0.8 K/mm3 (1.2-5.4) L 03/22/21 11:01 [place] # (Auto) 0.4 K/mm3 (0.0-0.8) 03/22/21 11:01 Eos # (Auto) 0.0 K/mm3 (0.0-0.4) 03/22/21 11:01 Baso # (Auto) 0.0 K/mm3 (0.0-0.1) 03/22/21 11:01 Add Manual Diff Complete 03/21/21 14:36 Total Counted 100 03/21/21 14:36 Seg Neutrophils % 83.2 % (40.0-70.0) H 03/22/21 11:01 Seg Neuts % (Manual) 93.0 % (40.0-70.0) H 03/21/21 14:36 Lymphocytes % (Manual) 6.0 % (13.4-35.0) L 03/21/21 14:36 Monocytes % (Manual) 1.0 % (0.0-7.3) 03/21/21 14:36 Nucleated RBC % Not Reportable 03/21/21 14:36 Seg Neutrophils # 5.9 K/mm3 (1.8-7.7) 03/22/21 11:01 Seg Neutrophils # Man 7.0 K/mm3 (1.8-7.7) 03/21/21 14:36 Band Neutrophils # 0.0 K/mm3 03/21/21 14:36 Lymphocytes # (Manual) 0.5 K/mm3 (1.2-5.4) L 03/21/21 14:36 Abs React Lymphs (Man) 0.0 K/mm3 03/21/21 14:36 Monocytes # (Manual) 0.1 K/mm3 (0.0-0.8) 03/21/21 14:36 Eosinophils # (Manual) 0.0 K/mm3 (0.0-0.4) 03/21/21 14:36 Basophils # (Manual) 0.0 K/mm3 (0.0-0.1) 03/21/21 14:36 Metamyelocytes # 0.0 K/mm3 03/21/21 14:36 Myelocytes # 0.0 K/mm3 03/21/21 14:36 Promyelocytes # 0.0 K/mm3 03/21/21 14:36 Blast Cells # 0.0 K/mm3 03/21/21 14:36 WBC Morphology Not Reportable 03/21/21 14:36 Hypersegmented Neuts Not Reportable 03/21/21 14:36 Hyposegmented Neuts Not Reportable 03/21/21 14:36 Hypogranular Neuts Not Reportable 03/21/21 14:36 Smudge Cells Not Reportable 03/21/21 14:36 Toxic Granulation Not Reportable 03/21/21 14:36 Toxic Vacuolation Not Reportable 03/21/21 14:36 Dohle Bodies Not Reportable 03/21/21 14:36 Pelger-Huet Anomaly Not Reportable 03/21/21 14:36 Stephany Rods Not Reportable 03/21/21 14:36 Platelet Estimate Consistent w auto 03/21/21 14:36 Clumped Platelets Not Reportable 03/21/21 14:36 Plt Clumps, EDTA Not Reportable 03/21/21 14:36 Large Platelets Not Reportable 03/21/21 14:36 Giant Platelets Not Reportable 03/21/21 14:36 Platelet Satelliting Not Reportable 03/21/21 14:36 Plt Morphology Comment Not Reportable 03/21/21 14:36 RBC Morphology Normal 03/21/21 14:36 Dimorphic RBCs Not Reportable 03/21/21 14:36 Polychromasia Not Reportable 03/21/21 14:36 Hypochromasia Not Reportable 03/21/21 14:36 Poikilocytosis Not Reportable 03/21/21 14:36 Anisocytosis Not Reportable 03/21/21 14:36 Microcytosis Not Reportable 03/21/21 14:36 Macrocytosis Not Reportable 03/21/21 14:36 Spherocytes Not Reportable 03/21/21 14:36 Pappenheimer Bodies Not Reportable 03/21/21 14:36 Sickle Cells Not Reportable 03/21/21 14:36 Target Cells Not Reportable 03/21/21 14:36 Tear Drop Cells Not Reportable 03/21/21 14:36 Ovalocytes Not Reportable 03/21/21 14:36 Helmet Cells Not Reportable 03/21/21 14:36 Cardoza-Pindall Bodies Not Reportable 03/21/21 14:36 Renick Rings Not Reportable 03/21/21 14:36 Esther Cells Not Reportable 03/21/21 14:36 Bite Cells Not Reportable 03/21/21 14:36 Crenated Cell Not Reportable 03/21/21 14:36 Elliptocytes Not Reportable 03/21/21 14:36 Acanthocytes (Spur) Not Reportable 03/21/21 14:36 Rouleaux Not Reportable 03/21/21 14:36 Hemoglobin C Crystals Not Reportable 03/21/21 14:36 Schistocytes Not Reportable 03/21/21 14:36 Malaria parasites Not Reportable 03/21/21 14:36 Sean Bodies Not Reportable 03/21/21 14:36 Hem Pathologist Commnt No 03/21/21 14:36 D-Dimer 395.59 ng/mlDDU (0-234) H 03/21/21 14:36 Sodium 143 mmol/L (137-145) 03/22/21 11:01 Potassium 4.9 mmol/L (3.6-5.0) 03/22/21 11:01 Chloride 107.3 mmol/L (98-107) H 03/22/21 11:01 Carbon Dioxide 27 mmol/L (22-30) 03/22/21 11:01 Anion Gap 14 mmol/L 03/22/21 11:01 BUN 20 mg/dL (7-17) H 03/22/21 11:01 Creatinine 1.2 mg/dL (0.6-1.2) 03/22/21 11:01 Estimated GFR 54 ml/min 03/22/21 11:01 BUN/Creatinine Ratio 17 % 03/22/21 11:01 Glucose 126 mg/dL (65-100) H 03/22/21 11:01 Calcium 10.0 mg/dL (8.4-10.2) 03/22/21 11:01 Ferritin 126.0 ng/mL (10.0-200.0) 03/21/21 14:36 Total Bilirubin 0.60 mg/dL (0.1-1.2) 03/21/21 14:36 AST 41 units/L (5-40) H 03/21/21 14:36 ALT 41 units/L (7-56) 03/21/21 14:36 Alkaline Phosphatase 93 units/L (35-129) 03/21/21 14:36 Lactate Dehydrogenase 244 units/L (91-180) H 03/21/21 14:36 Troponin T 0.063 ng/mL (0.00-0.029) H 03/21/21 14:36 C-Reactive Protein 1.50 mg/dL (0.00-1.30) H 03/21/21 14:36 NT-Pro-B Natriuret Pep 1177 pg/mL (0-900) H 03/21/21 14:36 Total Protein 7.9 g/dL (6.3-8.2) 03/21/21 14:36 Albumin 4.8 g/dL (3.9-5) 03/21/21 14:36 Albumin/Globulin Ratio 1.5 % 03/21/21 14:36 Triglycerides 55 mg/dL (2-149) 03/21/21 14:36 Cholesterol 230 mg/dL (50-199) H 03/21/21 14:36 LDL Cholesterol Direct 142 mg/dL (50-130) H 03/21/21 14:36 HDL Cholesterol 91 mg/dL (40-59) H 03/21/21 14:36 Cholesterol/HDL Ratio 2.52 % 03/21/21 14:36 Procalcitonin 0.86 ng/mL (<0.15) 03/21/21 14:36 Nasal Screen MRSA (PCR) Negative (Negative) 03/23/21 Unknown Coronavirus (PCR) Negative (Negative) 03/21/21 Unknown Scott/IV: Voiding Method Toilet Active Medications - Current Medications Current Medications: Generic Name Dose Route Start Last Admin Trade Name Freq PRN Reason Stop Dose Admin Acetaminophen 650 mg 03/21/21 16:00 Acetaminophen 325 Mg Tab PO Q4H PRN Pain MILD(1-3)/Fever >100.5/MADRID Albuterol 2.5 mg 03/21/21 16:00 03/25/21 09:08 Albuterol 2.5 Mg/3 Ml Nebu IH 2.5 mg Q4HRT PRN Administration Shortness Of Breath Ascorbic Acid 500 mg 03/21/21 22:00 03/25/21 10:31 Ascorbic Acid 500 Mg Tab PO 500 mg BID RICHIE Administration Cetirizine HCl 10 mg 03/24/21 12:00 03/25/21 10:31 Cetirizine 10 Mg Tab PO 10 mg QDAY RICHIE Administration Cholecalciferol 1,000 unit 03/22/21 10:00 03/25/21 10:31 Cholecalciferol (Vit D3) 1000 Unit (25 Mcg) Tab PO 1,000 unit QDAY RICHIE Administration Furosemide 40 mg 03/25/21 10:00 03/25/21 10:31 Furosemide 40 Mg/4 Ml Inj IV 40 mg QDAY RICHIE Administration Heparin Sodium (Porcine) 5,000 unit 03/21/21 22:00 03/25/21 10:33 Heparin 5,000 Unit/1 Ml Vial SUB-Q 5,000 unit Q12HR RICHIE Administration Hydralazine HCl 10 mg 03/22/21 23:55 03/24/21 07:57 Hydralazine 20 Mg/1 Ml Inj IV 10 mg Q6H PRN Administration Blood Pressure Hydromorphone HCl 0.5 mg 03/21/21 16:00 Hydromorphone 1 Mg/1 Ml Inj IV Q12H PRN Pain , Severe (7-10) Lisinopril 10 mg 03/22/21 17:00 03/25/21 10:31 Lisinopril 10 Mg Tab PO 10 mg QDAY RICHIE Administration Methylprednisolone Sodium Succinate 40 mg 03/21/21 17:00 03/25/21 05:22 Methylprednisolone Sod Succinate 40 Mg/1 Ml Inj IV 40 mg Q8HR RICHIE Administration Ondansetron HCl 4 mg 03/21/21 16:00 03/21/21 18:09 Ondansetron 4 Mg/2 Ml Inj IV 4 mg Q8H PRN Administration Nausea And Vomiting Oxycodone/Acetaminophen 1 tab 03/21/21 16:00 03/23/21 05:15 Oxycodone /Acetaminophen 5-325mg Tab PO 1 tab Q12H PRN Administration Pain, Moderate (4-6) Sodium Chloride 10 ml 03/21/21 22:00 03/25/21 10:31 Sodium Chloride 0.9% 10 Ml Flush Syringe IV 10 ml BID RIHCIE Administration Sodium Chloride 10 ml 03/21/21 16:00 Sodium Chloride 0.9% 10 Ml Flush Syringe IV PRN PRN LINE FLUSH Zinc Sulfate 220 mg 03/21/21 22:00 03/25/21 10:31 Zinc Sulfate 220 Mg Cap PO 220 mg BID RICHIE Administration
[2021-03-26] MEDS: methylPREDNISolone Sod Succinate 40 MG/1 ML INJ IV SCH ×2 (05:34→13:20)
[2021-03-26] MEDS: ZINC SULFATE 220 MG CAP PO SCH (09:04)
[2021-03-26] MEDS: ASCORBIC ACID 500 MG TAB PO SCH (09:04)
[2021-03-26] MEDS: CHOLECALCIFEROL (VIT D3) 1000 UNIT (25 mcg) TAB PO SCH (09:04)
[2021-03-26] MEDS: HEPARIN 5,000 UNIT/1 ML VIAL SUB-Q SCH (09:04)
[2021-03-26] MEDS: CETIRIZINE 10 MG TAB PO SCH (09:04)
[2021-03-26] MEDS: LISINOPRIL 10 MG TAB PO SCH (09:05)
[2021-03-26] MEDS: FUROSEMIDE 40 MG/4 ML INJ IV SCH (09:05)
[2021-03-26] MEDS: ALBUTEROL 2.5 MG/3 ML NEBU IH PRN (09:26)
[2021-03-26 12:55] VITALS: BP 105/70
--- NOTE | 2021-03-26 13:59 | Discharge Summary ---
Providers - Providers Date of Admission: 03/21/21 15:27 Date of discharge: 03/26/21 Attending physician: ALEXANDRA HORTA 03/25/21 19:07 Physical Therapy Evaluation and Treat [CONS] Routine Comment: Reason For Exam: General debility/evaluate and treat/DC needs Primary care physician: OUTPATIENT SURGERY RN Hospitalization Reason for admission: Worsening shortness of breath/acute hypoxemic respiratory failur Condition: Stable Pertinent studies: Chest x-ray; no acute abnormality noted Hospital course: 66-year-old female patient and personal detention resident with significant past medical history of hypertension COPD vascular dementia, cerebral atherosclerosis was admitted through emergency room with worsening shortness of breath. Initial evaluation is consistent with acute hypoxic respiratory failure O2 sats in emergency room on room air was 80%, slightly improved with supplemental oxygen. Patient was high suspicion for COVID-19/PUI, [place] PCR test was done which was negative, isolation discontinued Patient was managed with nebulizers, oxygen IV steroids, steroids slowly tapered Patient symptoms slowly but gradually improved Today she is comfortable no new complaints vital signs stable physical examination is unremarkable Stable at discharge Patient will continue her home oxygen as before Case management assisting with discharge to personal detention I discussed with patient's daughter patient's condition treatment and discharge planning Verbalized understanding, agreed with the discharge plan Patient is stable at discharge Discharge diagnosis -- Acute hypoxemic respiratory failure Continue home oxygen, nebulizers, tapering dose of steroids Follow-up with private communications electrician supervisor/PMD per schedule -- Acute bronchitis Bronchodilators, oxygen and supportive care. --SIRS without acute organ dysfunction Continue current management, improved --Acute exacerbation of COPD ; bronchodilators, tapering dose of IV steroids, Oxygen and supportive care -- CHUCK (acute kidney injury) present on admission Resolved, avoid nephrotoxin, gentle oral hydration -- Hyperkalemia/present on admission Resolved after treatment --Negative COVID-19 test Current Visit: Yes Status: Acute DC isolation, supportive care Patient is stable at discharge Patient already has home oxygen Disposition: DC-01 TO HOME OR SELFCARE Final Discharge Diagnosis (Prints w/discharge instructions): Acute hypoxemic respiratory failure. Acute bronchitis. Acute exacerbation of COPD. Acute kidney injury/resolved. Negative Covid test Time spent for discharge: 35 min Core Measure Documentation - Palliative Care Palliative Care/ Comfort Measures: Not Applicable - Core Measures Any of the following diagnoses?: none Exam - Constitutional Vitals: Temp Pulse Resp BP Pulse Ox 97.2 F L 89 20 105/70 100 03/26/21 11:40 03/26/21 11:40 03/26/21 11:40 03/26/21 11:40 03/26/21 11:40 General appearance: Present: no acute distress, well-nourished, other (Nasal c annula oxygen) - EENT Eyes: Present: PERRL, EOM intact - Neck Neck: Present: supple, normal ROM - Respiratory Respiratory effort: normal Respiratory: bilateral: diminished, negative: rales, rhonchi, wheezing - Cardiovascular Rhythm: regular Heart Sounds: Present: S1 & S2 - Extremities Extremities: no ischemia, No edema - Abdominal General gastrointestinal: Present: soft, non-tender, non-distended, normal bowel sounds - Integumentary Integumentary: Present: clear, warm - Musculoskeletal Musculoskeletal: generalized weakness - Psychiatric Psychiatric: appropriate mood/affect, cooperative - Neurologic Neurologic: moves all extremities Plan Activity: advance as tolerated, fall precautions Diet: other (Cardiac diet) Additional Instructions: Continue home oxygen as before. Fall precautions ,. if you have worsening symptoms contact MD or go to emergency room as needed Follow up with: PRIMARY CARE,MD [Primary Care Provider] - 7 Days Prescriptions: Prednisone [predniSONE 10 mg (6-Day Pack, 21 Tabs)] 10 mg PO .TAPER #1 tab.ds.pk Cetirizine HCl [ZyrTEC 10mg cap] 10 mg PO DAILY PRN #10 capsule PRN Reason: Congestion
--- NOTE | 2021-03-26 14:28 | Event Note ---
Date: 03/26/21 I called patient's daughter Ms. Shreya Huber at [phone] and discussed in detail patient's condition, treatment that she received Improvement, discharge planning and discharge medications, I answered all her questions, she agreed with the discharge planning.
[2021-03-26] MEDS ORDERED: ARFORMOTEROL 15 MCG/2 ML NEBU IH SCH (20:00)
[2021-03-26] MEDS ORDERED: IPRATROPIUM/ALBUTEROL SULFATE 3 ML AMPUL.NEB IH SCH (20:00)
== END 2021-03-26 18:25 | disposition home or self-care (01) | DRG 682 ==
LOC: ED 13:04 → 3A 15:27 → 4A 03-22 19:37
PROVIDERS: ADMIT Internal Medicine; ATTEND Internal Medicine
DX: N17.0 Acute kidney failure with tubular necrosis (principal); J96.01 Acute respiratory failure with hypoxia; J44.1 Chronic obstructive pulmonary disease with (acute) exacerbation; J44.0 Chronic obstructive pulmonary disease with (acute) lower respiratory infection; Z20.822 Contact with and (suspected) exposure to COVID-19; J20.9 Acute bronchitis, unspecified; E87.5 Hyperkalemia; I10 Essential (primary) hypertension; Z86.19 Personal history of other infectious and parasitic diseases; F01.50 Vascular dementia, unspecified severity, without behavioral disturbance, psychotic disturbance, mood disturbance, and anxiety; Z82.49 Family history of ischemic heart disease and other diseases of the circulatory system; Z88.2 Allergy status to sulfonamides; Z88.8 Allergy status to other drugs, medicaments and biological substances
CPT/HCPCS: 36415; 71045; 80048; 80053; 80061; 82728; 83615; 83880; 84145; 84484; 85007; 85025; 85379; 86140; 87641; 93005; 94640; 94760; G0378; J0360; J1644; J1940; J2405; J2920; J3475; J7030; U0003